=== PATIENT | male | born 1970 | race Caucasian/White ===

== ENCOUNTER 2017-10-12 22:56 | Emergency (ER) | payer BC ==
[~2017-10-12] VITALS: Ht 182.9 cm; Wt 80.7 kg
[2017-10-12 23:13] VITALS: BP_SYST 139
[2017-10-13 00:49] VITALS: BP_SYST 139
== END 2017-10-13 00:45 | disposition home or self-care (01) ==
LOC: SED 22:56
DX: M54.89 Other dorsalgia (principal); G89.29 Other chronic pain; F17.210 Nicotine dependence, cigarettes, uncomplicated; M19.90 Unspecified osteoarthritis, unspecified site
CPT/HCPCS: 99283